=== PATIENT | male | born 1995 | race Caucasian/White ===

== ENCOUNTER 2018-02-13 09:42 | Inpatient (IN) | payer OTHER ==
[2018-02-13] MEDS ORDERED: SODIUM CHLORIDE 0.9% 1,000 ML IV STA ×2 (10:22)
--- NOTE | 2018-02-13 10:24 | ED ---
Recheck HPI - General Chief Complaint: Recheck/Abnormal Lab/Rx Stated Complaint: hyperglycemia Time Seen by Provider: 02/13/18 10:00 Source: patient, RN notes reviewed Mode of arrival: ambulatory Limitations: no limitations - History of Present Illness Initial Comments: This is a 22-year-old male with a benign past medical history who does say with complaints of elevated blood glucose level. He's had 2-3 weeks of polyuria polydipsia he's had weight loss she's hungry all the time he states. He's had some lightheadedness and dizziness. He bought an Accu-Chek machine yesterday was found have a blood glucose of 502. Recheck this morning 332. There is remote family history of diabetes no personal history of any medical issues at all. No fevers chills nausea vomiting sweats or other symptoms at this time no other modifying factors MD Complaint: abnormal lab - Related Data Home Medications Medication Instructions Recorded Confirmed No Known Home Medications 02/13/18 02/13/18 Allergies Allergy/AdvReac Type Severity Reaction Status Date / Time No Known Allergies Allergy Verified 02/13/18 10:18 Review of Systems ROS Statement: Those systems with pertinent positive or pertinent negative responses have been documented in the HPI. ROS Other: All systems not noted in ROS Statement are negative. Past Medical History Past Medical History: No Reported History History of Any Multi-Drug Resistant Organisms: None Reported Past Surgical History: No Surgical Hx Reported Past Psychological History: Depression Smoking Status: Never smoker Past Alcohol Use History: None Reported Past Drug Use History: None Reported General Exam - General Exam Comments Initial Comments: This is a well-developed asthenic appearing male who is awake alert oriented 3 Limitations: no limitations General appearance: alert, in no apparent distress Head exam: Present: atraumatic, normocephalic, normal inspection Eye exam: Present: normal appearance, PERRL, EOMI. Absent: scleral icterus, conjunctival injection, periorbital swelling ENT exam: Present: mucous membranes dry Neck exam: Present: normal inspection. Absent: tenderness, meningismus, lymphadenopathy Respiratory exam: Present: normal lung sounds bilaterally. Absent: respiratory distress, wheezes, rales, rhonchi, stridor Cardiovascular Exam: Present: normal rhythm, tachycardia, normal heart sounds. Absent: systolic murmur, diastolic murmur, rubs, gallop, clicks GI/Abdominal exam: Present: soft, normal bowel sounds. Absent: distended, tenderness, guarding, rebound, rigid Extremities exam: Present: normal inspection, full ROM, normal capillary refill. Absent: tenderness, pedal edema, joint swelling, calf tenderness Back exam: Present: normal inspection Neurological exam: Present: alert, oriented X3, CN II-XII intact Psychiatric exam: Present: normal affect, normal mood Skin exam: Present: warm, dry, intact, normal color. Absent: rash Course Vital Signs 02/13/18 02/13/18 09:52 11:56 Temperature 97.9 F Pulse Rate 111 H 85 Respiratory 18 18 Rate Blood Pressure 114/72 115/76 O2 Sat by Pulse 100 100 Oximetry - Reevaluation(s) Reevaluation #1: 02/13/18 10:24 Bedside glucose level was 327. Medical Decision Making - Medical Decision Making I did reevaluate patient several occasions he is feeling improved I did discuss the case with him as well as his significant other and with Dr. patel. Patient will be admitted for evaluation new-onset diabetes. - Lab Data Result diagrams: 02/13/18 10:11 02/13/18 10:11 Lab Results 02/13/18 02/13/18 02/13/18 Range/Units 10:11 10:11 10:19 WBC 7.2 (4.0-11.0) k/uL RBC 5.32 (4.30-5.90) m/uL Hgb 17.7 H (13.0-17.5) gm/dL Hct 48.5 (39.0-53.0) % MCV 91.3 (80.0-100.0) fL MCH 33.3 (25.0-35.0) pg MCHC 36.4 (31.0-37.0) g/dL RDW 11.6 (11.5-15.5) % Plt Count 204 (150-450) k/uL Neutrophils % 66 % Lymphocytes % 28 % Monocytes % 4 % Eosinophils % 1 % Basophils % 0 % Neutrophils # 4.7 (1.3-7.7) k/uL Lymphocytes # 2.0 (1.0-4.8) k/uL Monocytes # 0.3 (0-1.0) k/uL Eosinophils # 0.1 (0-0.7) k/uL Basophils # 0.0 (0-0.2) k/uL Sodium 139 (137-145) mmol/L Potassium 4.3 (3.5-5.1) mmol/L Chloride 97 L (98-107) mmol/L Carbon Dioxide 26 (22-30) mmol/L Anion Gap 16 mmol/L BUN 18 (9-20) mg/dL Creatinine 0.96 (0.66-1.25) mg/dL Est GFR (CKD-EPI)AfAm >90 (>60 ml/min/1.73 sqM) Est GFR (CKD-EPI)NonAf >90 (>60 ml/min/1.73 sqM) Glucose 321 H (74-99) mg/dL POC Glucose (mg/dL) 327 H (75-99) mg/dL POC Glu Metal Milling Machine Operator Nina Dove Calcium 10.6 H (8.4-10.2) mg/dL Magnesium 1.8 (1.6-2.3) mg/dL Total Bilirubin 1.2 (0.2-1.3) mg/dL AST 19 (17-59) U/L ALT 29 (21-72) U/L Alkaline Phosphatase 122 (38-126) U/L Total Protein 8.4 H (6.3-8.2) g/dL Albumin 4.9 (3.5-5.0) g/dL Urine Color Urine Appearance (Clear) Urine pH (5.0-8.0) Ur Specific [place] (1.001-1.035) Urine Protein (Negative) Urine Glucose (UA) (Negative) Urine Ketones (Negative) Urine Blood (Negative) Urine Nitrite (Negative) Urine Bilirubin (Negative) Urine Urobilinogen (<2.0) mg/dL Ur Leukocyte Esterase (Negative) Acetone, Qual Negative (Negative) 02/13/18 Range/Units 10:50 WBC (4.0-11.0) k/uL RBC (4.30-5.90) m/uL Hgb (13.0-17.5) gm/dL Hct (39.0-53.0) % MCV (80.0-100.0) fL MCH (25.0-35.0) pg MCHC (31.0-37.0) g/dL RDW (11.5-15.5) % Plt Count (150-450) k/uL Neutrophils % % Lymphocytes % % Monocytes % % Eosinophils % % Basophils % % Neutrophils # (1.3-7.7) k/uL Lymphocytes # (1.0-4.8) k/uL Monocytes # (0-1.0) k/uL Eosinophils # (0-0.7) k/uL Basophils # (0-0.2) k/uL Sodium (137-145) mmol/L Potassium (3.5-5.1) mmol/L Chloride (98-107) mmol/L Carbon Dioxide (22-30) mmol/L Anion Gap mmol/L BUN (9-20) mg/dL Creatinine (0.66-1.25) mg/dL Est GFR (CKD-EPI)AfAm (>60 ml/min/1.73 sqM) Est GFR (CKD-EPI)NonAf (>60 ml/min/1.73 sqM) Glucose (74-99) mg/dL POC Glucose (mg/dL) (75-99) mg/dL POC Glu Metal Milling Machine Operator ID Calcium (8.4-10.2) mg/dL Magnesium (1.6-2.3) mg/dL Total Bilirubin (0.2-1.3) mg/dL AST (17-59) U/L ALT (21-72) U/L Alkaline Phosphatase (38-126) U/L Total Protein (6.3-8.2) g/dL Albumin (3.5-5.0) g/dL Urine Color Yellow Urine Appearance Clear (Clear) Urine pH 5.0 (5.0-8.0) Ur Specific [place] 1.035 (1.001-1.035) Urine Protein Trace H (Negative) Urine Glucose (UA) 4+ H (Negative) Urine Ketones 2+ H (Negative) Urine Blood Negative (Negative) Urine Nitrite Negative (Negative) Urine Bilirubin Negative (Negative) Urine Urobilinogen <2.0 (<2.0) mg/dL Ur Leukocyte Esterase Negative (Negative) Acetone, Qual (Negative) - Radiology Data Radiology results: report reviewed (I did review the imaging and report no acute findings.), image reviewed Disposition Clinical Impression: Diabetes mellitus, new onset, Dehydration Disposition: ADMITTED IP TO THIS [facility] Condition: Stable Referrals: None,Stated [Primary Care Provider] - 1-2 days
[2018-02-13 10:26] LABS: Glucose,Whole Blood 327 mg/dL (75-99)
[2018-02-13 10:54] LABS: ALT 29 U/L (21-72); AST 19 U/L (17-59); Albumin 4.9 g/dL (3.5-5.0); Alkaline Phosphatase 122 U/L (38-126); Anion Gap 16 mmol/L; Blood Urea Nitrogen 18 mg/dL (9-20); Calcium 10.6 mg/dL (8.4-10.2); Carbon Dioxide 26 mmol/L (22-30); Chloride 97 mmol/L (98-107); Glucose 321 mg/dL (74-99); Magnesium 1.8 mg/dL (1.6-2.3); Potassium 4.3 mmol/L (3.5-5.1); Sodium 139 mmol/L (137-145); Total Bilirubin 1.2 mg/dL (0.2-1.3); Total Protein 8.4 g/dL (6.3-8.2)
[2018-02-13 10:59] LABS: Basophils % (A) 0 %; Eosinophils # (A) 0.1 k/uL (0-0.7); Eosinophils % (A) 1 %; HCT 48.5 % (39.0-53.0); HGB 17.7 gm/dL (13.0-17.5); Lymphocytes % (A) 28 %; MCH 33.3 pg (25.0-35.0); MCHC 36.4 g/dL (31.0-37.0); MCV 91.3 fL (80.0-100.0); Mean Platelet Volume 7.1; Monocytes # (A) 0.3 k/uL (0-1.0); Monocytes % (A) 4 %; Neutrophils # (A) 4.7 k/uL (1.3-7.7); Neutrophils % (A) 66 %; Platelet Count 204 k/uL (150-450); RBC 5.32 m/uL (4.30-5.90); RDW 11.6 % (11.5-15.5); WBC 7.2 k/uL (4.0-11.0)
[2018-02-13 11:05] LABS: Appearance,Urine Clear (Clear); Bilirubin,Urine Negative (Negative); Blood,Urine Negative (Negative); Color,Urine Yellow; Glucose,Urine (UA) 4+ (Negative); Leukocyte Esterase,Urine Negative (Negative); Nitrite,Urine Negative (Negative); Protein,Urine Trace (Negative); Specific Gravity,Urine 1.035 (1.001-1.035); Urobilinogen,Urine <2.0 mg/dL (<2.0)
--- NOTE | 2018-02-13 11:21 | XR ---
EXAMINATION TYPE: XR chest 2V DATE OF EXAM: 02/13/2018 COMPARISON: NONE HISTORY: Cough. TECHNIQUE: Frontal and lateral views of the chest are obtained. FINDINGS: There is no focal air space opacity, pleural effusion, or pneumothorax seen. The cardiac silhouette size is within normal limits. The osseous structures are intact. IMPRESSION: No suspicious acute pulmonary process.
[2018-02-13 11:43] LABS: Ketones,Urine 2+ (Negative)
[2018-02-13] MEDS ORDERED: INSULIN REGULAR 100 UNIT/ML VIAL IV ONE (12:13)
[2018-02-13] MEDS ORDERED: NALOXONE 0.4 MG/ML 1 ML VIAL IV PRN (13:38)
[2018-02-13] MEDS: SODIUM CHLORIDE 0.9% 1,000 ML IV SCH (15:45)
[2018-02-13 17:06] LABS: Glucose,Whole Blood 371 mg/dL (75-99)
[2018-02-13 17:48] LABS: Hemoglobin A1C 10.2 % (4.0-6.0)
[2018-02-13] MEDS: INSULIN ASPART 100 UNIT/ML 1 ML 10 ML VIAL SQ SCH ×3 (17:56→21:18)
[2018-02-13 21:07] LABS: Glucose,Whole Blood 379 mg/dL (75-99)
[2018-02-13] MEDS: INSULIN DETEMIR 100 UNIT/ML 10 ML VIAL SQ SCH (21:27)
[2018-02-13 22:29] LABS: Glucose,Whole Blood 185 mg/dL (75-99)
--- NOTE | 2018-02-13 22:41 | P.HPIM ---
History of Present Illness H&P Date: 02/13/18 Chief Complaint: Elevated blood sugar Patient is a 22-year-old male without significant past medical history came to the hospital with elevated blood sugar level checked at home. For the past 2-3 weeks patient has been having polyuria and polydipsia and felt very weak and fatigued. Patient says that she did not gain any weight despite feeling hungry and heavy food intake. Patient was at his friend's house and when he checked his blood sugar was found to be greater than 500. Patient did took some bread and M&Ms at that time. Patient did check his blood sugar the next day morning which she still elevated greater than 300. Patient presented to ER for evaluation. Does have a family history of diabetes2 and his grandmother's and great grandfather. No fever no chills. No abdominal pain. No nausea vomiting. No chest pain or shortness of breath. Acetone negative Review of Systems Constitutional: Patient denies any fever or chills . She does have generalized weakness and weight loss. Abdomen: Patient denied nausea vomiting and diarrhea and abdominal pain. Cardiovascular: Patient denies any chest pain or short of breath no palpitations. Respiratory: patient denied any cough is from production. No shortness of breath Neurologic: Patient denied any numbness or tingling headache. Musculoskeletal: Patient denies any complaints of joint swelling or deformity. Skin: Negative Psychiatric: Negative Endocrine: No heat or cold intolerance. Patient does have polyuria or polydipsia and weight loss. Genitourinary: No dysuria or hematuria. All other 14 point ROS negative except the above Past Medical History Past Medical History: No Reported History History of Any Multi-Drug Resistant Organisms: None Reported Past Surgical History: No Surgical Hx Reported Past Psychological History: Depression Smoking Status: Never smoker Past Alcohol Use History: None Reported Past Drug Use History: None Reported - Past Family History Mother History Unknown: Yes Father History Unknown: Yes Medications and Allergies Home Medications Medication Instructions Recorded Confirmed Type No Known Home Medications 02/13/18 02/13/18 History Allergies Allergy/AdvReac Type Severity Reaction Status Date / Time No Known Allergies Allergy Verified 02/13/18 10:18 Physical Exam Vitals: Vital Signs Temp Pulse Resp BP Pulse Ox 02/13/18 13:37 72 18 114/79 100 02/13/18 11:56 85 18 115/76 100 02/13/18 09:52 97.9 F 111 H 18 114/72 100 Intake and Output 02/12/18 02/13/18 02/13/18 22:59 06:59 14:59 Other: Weight 58.649 kg PHYSICAL EXAMINATION: Patient is lying in the bed comfortably, no acute distress, awake alert and oriented.. HEENT: Normocephalic. Neck is supple. Pupils reactive. Nostrils clear. Oral cavity is moist. Ears reveal no drainage. Neck reveals no JVD, carotid bruits, or thyromegaly. CHEST EXAMINATION: Trachea is central. Symmetrical expansion. Lung stiles clear to auscultation and percussion. CARDIAC: Normal S1, S2 with no gallops. No murmurs ABDOMEN: Soft. Bowel sounds normal. No organomegaly. No abdominal bruits. Extremities: reveal no edema. No clubbing or cyanosis Neurologically awake, alert, oriented x3 with well-coordinated movements. No focal deficits noted Skin: No rash or skin lesions. Psychiatric: Coperative. Nonsuicidal Musculoskeletal: No joint swelling or deformity. Normal range of motion. Results CBC & Chem 7: 02/13/18 10:11 02/13/18 10:11 Labs: Abnormal Lab Results - Last 24 Hours (Table) 02/13/18 02/13/18 02/13/18 Range/Units 10:11 10:11 10:19 Hgb 17.7 H (13.0-17.5) gm/dL Chloride 97 L (98-107) mmol/L Glucose 321 H (74-99) mg/dL POC Glucose (mg/dL) 327 H (75-99) mg/dL Calcium 10.6 H (8.4-10.2) mg/dL Total Protein 8.4 H (6.3-8.2) g/dL Urine Protein (Negative) Urine Glucose (UA) (Negative) Urine Ketones (Negative) 02/13/18 Range/Units 10:50 Hgb (13.0-17.5) gm/dL Chloride (98-107) mmol/L Glucose (74-99) mg/dL POC Glucose (mg/dL) (75-99) mg/dL Calcium (8.4-10.2) mg/dL Total Protein (6.3-8.2) g/dL Urine Protein Trace H (Negative) Urine Glucose (UA) 4+ H (Negative) Urine Ketones 2+ H (Negative) Thrombosis Risk Factor Assmnt - DVT/VTE Prophylaxis DVT/VTE Prophylaxis: Pharmacologic Prophylaxis ordered Assessment and Plan Assessment: Elevated blood sugar with new onset diabetes type 2. Not in DKA. HB A1c 10.2 Hypercalcemia due to dehydration Weight loss and generalized weakness Plan: Patient will be continued on IV hydration. Will start patient on insulin Levemir 15 units in the night along with 5 units 3 times a day before meals. Continue the insulin sliding scale and follow closely. Diabetic education has been provided. We'll recommend follow-up with endocrinology as outpatient. Time with Patient: Greater than 30
[2018-02-14 02:15] LABS: Glucose,Whole Blood 212 mg/dL (75-99)
[2018-02-14] MEDS: SODIUM CHLORIDE 0.9% 1,000 ML IV SCH ×2 (06:18→17:49)
[2018-02-14 07:31] LABS: Glucose,Whole Blood 189 mg/dL (75-99)
[2018-02-14] MEDS: INSULIN ASPART 100 UNIT/ML 1 ML 10 ML VIAL SQ SCH ×7 (08:22→21:31)
[2018-02-14 12:14] LABS: Basophils % (A) 1 %; Eosinophils # (A) 0.1 k/uL (0-0.7); Eosinophils % (A) 2 %; HCT 41.1 % (39.0-53.0); Lymphocytes # (A) 1.7 k/uL (1.0-4.8); Lymphocytes % (A) 33 %; MCH 31.8 pg (25.0-35.0); MCHC 34.1 g/dL (31.0-37.0); MCV 93.2 fL (80.0-100.0); Monocytes # (A) 0.2 k/uL (0-1.0); Monocytes % (A) 5 %; Neutrophils # (A) 2.9 k/uL (1.3-7.7); Neutrophils % (A) 58 %; Platelet Count 146 k/uL (150-450); RBC 4.41 m/uL (4.30-5.90); RDW 11.6 % (11.5-15.5); WBC 4.9 k/uL (4.0-11.0)
[2018-02-14 12:23] LABS: Glucose,Whole Blood 336 mg/dL (75-99)
[2018-02-14 12:24] LABS: Anion Gap 7 mmol/L; Blood Urea Nitrogen 13 mg/dL (9-20); Calcium 9.2 mg/dL (8.4-10.2); Carbon Dioxide 25 mmol/L (22-30); Chloride 106 mmol/L (98-107); Glucose 280 mg/dL (74-99); Potassium 4.2 mmol/L (3.5-5.1); Sodium 138 mmol/L (137-145)
[2018-02-14] MEDS ORDERED: INSULN ASP PRT/INSULIN ASPART 100 UNIT/ML 10 ML VIAL SQ ONE (13:39)
[2018-02-14 15:13] VITALS: BMI 17.0
[2018-02-14 17:21] LABS: Glucose,Whole Blood 141 mg/dL (75-99)
[2018-02-14] MEDS ORDERED: INSULN ASP PRT/INSULIN ASPART 100 UNIT/ML 10 ML VIAL SQ SCH (17:30)
[2018-02-14] MEDS: INSULIN DETEMIR 100 UNIT/ML 10 ML VIAL SQ SCH (21:32)
[2018-02-14 21:37] LABS: Glucose,Whole Blood 155 mg/dL (75-99)
--- NOTE | 2018-02-15 00:17 | P.PN ---
Subjective Progress Note Date: 02/14/18 Principal diagnosis: New onset diabetes2 Patient is a 22-year-old male without significant past medical history came to the hospital with elevated blood sugar level checked at home. For the past 2-3 weeks patient has been having polyuria and polydipsia and felt very weak and fatigued. Patient says that she did not gain any weight despite feeling hungry and heavy food intake. Patient was at his friend's house and when he checked his blood sugar was found to be greater than 500. Patient did took some bread and M&Ms at that time. Patient did check his blood sugar the next day morning which she still elevated greater than 300. Patient presented to ER for evaluation. Does have a family history of diabetes2 and his grandmother's and great grandfather. No fever no chills. No abdominal pain. No nausea vomiting. No chest pain or shortness of breath. Acetone negative 02/14/2018 Patient says that he is feeling better today. Blood sugar is still elevated. Patient be continued on Lantus and insulin sliding scale and preprandial insulin. Titrate as needed. No complaints of chest pain or shortness of breath. No nausea vomiting or abdominal pain continued on IV hydration. No other acute overnight issues. Current medications reviewed Objective - Vital Signs Vital signs: Vital Signs Temp 97.8 F 02/14/18 23:00 Pulse 64 02/14/18 23:00 Resp 18 02/14/18 23:00 BP 102/64 02/14/18 23:00 Pulse Ox 100 02/14/18 23:00 Intake & Output 02/14/18 02/14/18 02/15/18 06:59 18:59 06:59 Intake Total 440 320 Balance 440 320 Weight 58.649 kg Intake: Oral 440 320 Other: Voiding Method Toilet Toilet # Voids 2 2 # Bowel Movements 0 - Exam PHYSICAL EXAMINATION: Patient is lying in the bed comfortably, no acute distress, awake alert and oriented.. HEENT: Normocephalic. Neck is supple. Pupils reactive. Nostrils clear. Oral cavity is moist. Ears reveal no drainage. Neck reveals no JVD, carotid bruits, or thyromegaly. CHEST EXAMINATION: Trachea is central. Symmetrical expansion. Lung stiles clear to auscultation and percussion. CARDIAC: Normal S1, S2 with no gallops. No murmurs ABDOMEN: Soft. Bowel sounds normal. No organomegaly. No abdominal bruits. Extremities: reveal no edema. No clubbing or cyanosis Neurologically awake, alert, oriented x3 with well-coordinated movements. No focal deficits noted Skin: No rash or skin lesions. Psychiatric: Coperative. Nonsuicidal Musculoskeletal: No joint swelling or deformity. Normal range of motion. - Labs CBC & Chem 7: 02/14/18 11:36 02/14/18 11:36 Labs: Abnormal Lab Results - Last 24 Hours (Table) 02/14/18 02/14/18 02/14/18 Range/Units 02:13 07:27 11:36 Plt Count 146 L (150-450) k/uL Creatinine (0.66-1.25) mg/dL Glucose (74-99) mg/dL POC Glucose (mg/dL) 212 H 189 H (75-99) mg/dL 02/14/18 02/14/18 02/14/18 Range/Units 11:36 12:02 17:01 Plt Count (150-450) k/uL Creatinine 0.61 L (0.66-1.25) mg/dL Glucose 280 H (74-99) mg/dL POC Glucose (mg/dL) 336 H 141 H (75-99) mg/dL 02/14/18 Range/Units 21:09 Plt Count (150-450) k/uL Creatinine (0.66-1.25) mg/dL Glucose (74-99) mg/dL POC Glucose (mg/dL) 155 H (75-99) mg/dL Assessment and Plan Assessment: Elevated blood sugar with new onset diabetes type 2. Not in DKA. HB A1c 10.2 Hypercalcemia due to dehydration Weight loss and generalized weakness Plan: Patient will be continued on IV hydration. Will start patient on insulin Levemir 15 units in the night along with 5 units 3 times a day before meals. Continue the insulin sliding scale and follow closely. Diabetic education has been provided. We'll recommend follow-up with endocrinology as outpatient.
[2018-02-15 02:52] LABS: Glucose,Whole Blood 115 mg/dL (75-99)
[2018-02-15] MEDS: SODIUM CHLORIDE 0.9% 1,000 ML IV SCH ×2 (04:01→15:15)
[2018-02-15 07:08] LABS: Glucose,Whole Blood 108 mg/dL (75-99)
[2018-02-15] MEDS ORDERED: INSULN ASP PRT/INSULIN ASPART 100 UNIT/ML 10 ML VIAL SQ SCH (07:30)
[2018-02-15] MEDS: INSULIN ASPART 100 UNIT/ML 1 ML 10 ML VIAL SQ SCH ×2 (07:39→12:22)
[2018-02-15 07:51] VITALS: BP 107/67; PULSE 75; RESP 16; TEMP 98.2
[2018-02-15 12:18] LABS: Glucose,Whole Blood 171 mg/dL (75-99)
== END 2018-02-15 15:54 | disposition home or self-care (01) | DRG 639 ==
LOC: EC 09:42 → 4MS4W 13:38
PROVIDERS: ADMIT Internal Medicine; ATTEND Internal Medicine
DX: E11.65 Type 2 diabetes mellitus with hyperglycemia (principal); E83.52 Hypercalcemia; E86.0 Dehydration; Z83.3 Family history of diabetes mellitus; Z86.59 Personal history of other mental and behavioral disorders
CPT/HCPCS: 36415; 71046; 80048; 80053; 81003; 82009; 83036; 83735; 85025; 96360; 96361; 99285

== ENCOUNTER 2019-01-03 07:30 | Observation (INO) | payer BC ==
[2019-01-03] MEDS ORDERED: SODIUM CHLORIDE 0.9% 1,000 ML IV STA ×2 (07:36→08:32)
[2019-01-03 07:47] LABS: Glucose,Whole Blood 470 mg/dL (75-99)
[2019-01-03 07:59] LABS: Appearance,Urine Clear (Clear); Bilirubin,Urine Negative (Negative); Blood,Urine Negative (Negative); Color,Urine Colorless; Glucose,Urine (UA) 4+ (Negative); Leukocyte Esterase,Urine Negative (Negative); Nitrite,Urine Negative (Negative); PH, Urine 5.5 (5.0-8.0); Protein,Urine Negative (Negative); Specific Gravity,Urine 1.033 (1.001-1.035); Urobilinogen,Urine <2.0 mg/dL (<2.0)
--- NOTE | 2019-01-03 08:01 | ED ---
General Adult HPI - General Chief complaint: Recheck/Abnormal Lab/Rx Stated complaint: diabetes Time Seen by Provider: 01/03/19 07:35 Source: patient Mode of arrival: ambulatory Limitations: no limitations - History of Present Illness Initial comments: Dictation was produced using [employer] dictation software. please excuse any grammatical, word or spelling errors. Chief Complaint: 23-year-old male presents with uncontrolled hyperglycemia. History of Present Illness: 23-year-old male. He's been diagnosed with diabetes for approximately one year now. Patient has been having uncontrolled blood sugars that have been managed by his primary care physician. Patient is on insulin. He had his hemoglobin A1c measured recently and is finally 12.7. Patient on average has been having sugars in the 300. He checked his blood sugar at 1 AM this morning found to be 600. He gave himself 8 units of NovoLog rechecked at 5 minutes 406. Patient has been having nausea vomiting polyuria and polydipsia. Patient denies any constitutional symptoms. The ROS documented in this emergency department record has been reviewed and confirmed by me. Those systems with pertinent positive or negative responses have been documented in the HPI. All other systems are other negative and/or noncontributory. PHYSICAL EXAM: General Impression: Alert and oriented x3, not in acute distress HEENT: Normocephalic atraumatic, extra-ocular movements intact, pupils equal and reactive to light bilaterally, dry mucous membranes Cardiovascular: Heart regular rate and rhythm, S1&S2 audible, no murmurs, rubs or gallops Chest: Lungs clear to auscultation bilaterally, no rhonchi, no wheeze, no rales Abdomen: Bowel sounds present, abdomen soft, non-tender, non-distended, no organomegaly Musculoskeletal: Pulses present and equal in all extremities, no peripheral edema Motor: no focal deficits noted Neurological: CN II-XII grossly intact, no focal motor or sensory deficits noted Skin: Intact with no visualized rashes Psych: Normal affect and mood ED course: 23-year-old male presents with uncontrolled blood sugar. Given the patient has a recently measured A1c of 12.7 sugars likely chronically uncontrolled. Vital signs upon arrival shows findings within acceptable limits. Lab evaluation obtained. Sodium of 134, glucose of 555, anion gap acidosis with bicarb of 19 and anion gap 16. His 4+ glucose in his urine and 2+ ketones. Johnson leónical presentation consistent with mild diabetic ketoacidosis. Patient reports that it's unclear whether patient is late onset type I or type 2 diabetes. Patient given multiple boluses of intravenous fluids. he'll be admitted for IV hydration and glucose control. he understandable agreeable with disposition. Pending discussion with Dr. Ramirez. - Related Data Home Medications Medication Instructions Recorded Confirmed Cyanocobalamin (Vitamin B-12) 2,000 mcg PO HS 01/03/19 01/03/19 [Vitamin B-12] Gabapentin [Neurontin] 100 mg PO AC-TID 01/03/19 01/03/19 Insulin Aspart [NovoLOG Flexpen] 8 units SQ AC-TID 01/03/19 01/03/19 Magnesium 200 mg PO HS 01/03/19 01/03/19 Modafinil [Provigil] 200 mg PO HS PRN 01/03/19 01/03/19 Allergies Allergy/AdvReac Type Severity Reaction Status Date / Time No Known Allergies Allergy Verified 01/03/19 08:45 Review of Systems ROS Statement: Those systems with pertinent positive or pertinent negative responses have been documented in the HPI. ROS Other: All systems not noted in ROS Statement are negative. Past Medical History Past Medical History: Diabetes Mellitus Additional Past Medical History / Comment(s): depression but takes no meds. History of Any Multi-Drug Resistant Organisms: None Reported Past Surgical History: No Surgical Hx Reported Additional Past Surgical History / Comment(s): oral Past Anesthesia/Blood Transfusion Reactions: No Reported Reaction Additional Past Anesthesia/Blood Transfusion Reaction / Comment(s): "has never received any blood transfusions" Past Psychological History: No Psychological Hx Reported Smoking Status: Never smoker Past Alcohol Use History: None Reported Past Drug Use History: None Reported - Past Family History Mother History Unknown: Yes Father History Unknown: Yes General Exam Limitations: no limitations Course Vital Signs 01/03/19 07:31 Temperature 97.8 F Pulse Rate 97 Respiratory 18 Rate Blood Pressure 129/88 O2 Sat by Pulse 100 Oximetry Medical Decision Making - Lab Data Result diagrams: 01/03/19 07:45 Lab Results 01/03/19 01/03/19 01/03/19 Range/Units 07:35 07:45 07:45 Sodium 134 L (137-145) mmol/L Potassium 4.9 (3.5-5.1) mmol/L Chloride 99 (98-107) mmol/L Carbon Dioxide 19 L (22-30) mmol/L Anion Gap 16 mmol/L BUN 18 (9-20) mg/dL Creatinine 0.82 (0.66-1.25) mg/dL Est GFR (CKD-EPI)AfAm >90 (>60 ml/min/1.73 sqM) Est GFR (CKD-EPI)NonAf >90 (>60 ml/min/1.73 sqM) Glucose 555 H* (74-99) mg/dL POC Glucose (mg/dL) 470 H (75-99) mg/dL POC Glu Tunnel Elastic Operator Zigzag ID Emiliano Gibson Calcium 9.9 (8.4-10.2) mg/dL Urine Color Colorless Urine Appearance Clear (Clear) Urine pH 5.5 (5.0-8.0) Ur Specific [place] 1.033 (1.001-1.035) Urine Protein Negative (Negative) Urine Glucose (UA) 4+ H (Negative) Urine Ketones 2+ H (Negative) Urine Blood Negative (Negative) Urine Nitrite Negative (Negative) Urine Bilirubin Negative (Negative) Urine Urobilinogen <2.0 (<2.0) mg/dL Ur Leukocyte Esterase Negative (Negative) Disposition Clinical Impression: DKA (diabetic ketoacidoses) Disposition: ADMITTED IP TO THIS [facility] Condition: Fair Decision Time: 08:53
[2019-01-03 08:06] LABS: African American GFR (CKD) >90 (>60 ml/min/1.73 sqM); Anion Gap 16 mmol/L; Blood Urea Nitrogen 18 mg/dL (9-20); Calcium 9.9 mg/dL (8.4-10.2); Carbon Dioxide 19 mmol/L (22-30); Chloride 99 mmol/L (98-107); Non-African American GFR(CKD) >90 (>60 ml/min/1.73 sqM); Potassium 4.9 mmol/L (3.5-5.1); Sodium 134 mmol/L (137-145)
[2019-01-03 08:14] LABS: Glucose 555 mg/dL (74-99)
[2019-01-03] MEDS ORDERED: INSULIN REGULAR 100 UNIT/ML VIAL IV ONE (08:18)
[2019-01-03 08:24] LABS: Ketones,Urine 2+ (Negative)
[2019-01-03] MEDS ORDERED: ONDANSETRON 4 MG/2 ML VIAL IVP PRN (08:51)
[2019-01-03] MEDS ORDERED: NALOXONE 0.4 MG/ML 1 ML VIAL IV PRN (08:51)
[2019-01-03 09:08] LABS: Glucose,Whole Blood 419 mg/dL (75-99)
[2019-01-03] MEDS ORDERED: Potassium Replacement Protocol 1 EACH MISC MISCELLANE PRN ×2 (09:10→14:48)
[2019-01-03] MEDS ORDERED: Magnesium Replacement Protocol 1 EACH MISC MISCELLANE PRN (09:10)
[2019-01-03] MEDS ORDERED: INSULIN REGULAR 100 UNIT in SODIUM CHLORIDE 0.9% 100 ML IV SCH (09:15)
[2019-01-03 09:57] LABS: Glucose,Whole Blood 375 mg/dL (75-99)
[2019-01-03] MEDS ORDERED: INFLUENZA VACCINE (6 MOS+) 60 MCG/0.5 ML SYRINGE IM ONE (10:08)
[2019-01-03] MEDS ORDERED: PNEUMOCOCCAL VACC-PNEUMOVAX 23 25 MCG/0.5 ML VIAL IM ONE (10:08)
[2019-01-03 11:11] LABS: Glucose,Whole Blood 334 mg/dL (75-99)
[2019-01-03] MEDS: SODIUM CHLORIDE 0.9% 1,000 ML IV SCH ×5 (11:31→23:21)
[2019-01-03 12:21] LABS: Glucose,Whole Blood 250 mg/dL (75-99)
[2019-01-03] MEDS ORDERED: INSULIN ASPART (NovoLOG) 100 UNIT/ML VIAL SQ SCH (12:30)
[2019-01-03 13:05] LABS: Glucose,Whole Blood 218 mg/dL (75-99)
[2019-01-03 13:21] VITALS: BMI 17.6
[2019-01-03 13:39] LABS: African American GFR (CKD) >90 (>60 ml/min/1.73 sqM); Anion Gap 8 mmol/L; Blood Urea Nitrogen 18 mg/dL (9-20); Carbon Dioxide 25 mmol/L (22-30); Chloride 106 mmol/L (98-107); Non-African American GFR(CKD) >90 (>60 ml/min/1.73 sqM); Phosphorus 3.7 mg/dL (2.5-4.5); Potassium 3.4 mmol/L (3.5-5.1); Sodium 139 mmol/L (137-145)
[2019-01-03 14:15] LABS: Glucose,Whole Blood 167 mg/dL (75-99)
[2019-01-03] MEDS: POTASSIUM CHLORIDE ER 20 MEQ TAB.ER PO SCH ×2 (14:59→16:18)
[2019-01-03 15:07] LABS: Glucose,Whole Blood 98 mg/dL (75-99)
[2019-01-03 15:35] LABS: Glucose,Whole Blood 73 mg/dL (75-99)
--- NOTE | 2019-01-03 15:38 | P.HPIM ---
History of Present Illness H&P Date: 01/03/19 Chief Complaint: Nausea vomiting History of presenting complaint: This is a pleasant 43-year-old patient who follows with Dr. Jaswant kenyon from [place]. Patient over Urecholine was diagnosed with diabetes mellitus type 1 and started on insulin pump. Prior to that was using Levemir and NovoLog. Patient's been having trouble with her supplies. Also the attachment that attaches to the skin has been getting blocked up. Also not getting much help he states from the company that with insulin pump. Is also having trouble with the continuous glucose monitor. He does not follow with commercial loan reviewer. Recently just been using the NovoLog. His sugars are running high in the 300s. Recent HbA1c was 12.7. Patient had gone to work he started feeling unwell. Started having nausea vomiting. Found to have sugars reading above 500. Came to the ER. Patient's anion gap was 16. Blood glucose was 555. Talk to the ER physician. Decided to start the patient on insulin drip. Patient been feeling weak tired. No respiratory or urinary symptoms. No fever or chills. Review of systems: GEN.: Weak tired rundown EYES: None HEENT: None NECK: None RESPIRATORY: None CARDIOVASCULAR: None GASTROINTESTINAL: As above GENITOURINARY: None MUSCULOSKELETAL: None LYMPHATICS: None HEMATOLOGICAL: None PSYCHIATRY: None NEUROLOGICAL: Numbness tingling in the feet and hand Past medical history to include: Diabetes mellitus type 1 with peripheral neuropathy Social history: Lives with his fiance. Works in the factory as a line d-dimer. Does not smoke or drink alcohol. No use of recreational drugs. Family history: Reviewed, noncontributory to presentation Physical examination: VITAL SIGNS: 97.8, 97, 18, 129/88, 100% room air GENERAL: BMI 17.7, laying in bed to bit tired appearing. EYES: Pupils equal. Conjunctiva normal. HEENT: External appearance of nose and ears normal, oral cavity dry. NECK: JVD not raised; masses not palpable. HEART: First and second heart sounds are normal; no edema. LUNGS: Respiratory rate normal; clear to auscultation. ABDOMEN: Soft, nontender, liver spleen not palpable, no masses palpable. PSYCH: Alert and oriented x3; mood and affect normal. NEUROLOGICAL: Cranial nerves grossly intact; no facial asymmetry, power and sensation grossly intact. LYMPHATICS: No lymph nodes palpable in the axilla and neck INVESTIGATIONS, reviewed in the clinical context: Yesenia 4.9 crit 0.8 to blood glucose 555 serum acetone positive UA positive for ketones and glucose Assessment: -Acute diabetic ketoacidosis -Diabetes because type I, uncontrolled with hyperglycemia. Patient's on insulin pump but supplies are not working right. He is having mechanical problem. Diabetic peripheral neuropathy Plan: Patient started on insulin pump. Discussed with him today. We'll start the patient on long-acting Lantus tonight if doing better. He will then follow-up process PCP and will also be established commercial loan reviewer. Also diabetic wanted to add was consulted. Lovenox for DVT prophylaxis. Diet to advance as tolerated. Past Medical History Past Medical History: Diabetes Mellitus Additional Past Medical History / Comment(s): IDDM, neuropathy bilteral ocampo ds/fingers, pt states he has insulin pump but has issues with it "clogging" and has limited supplies so will then convert to his insulins pen History of Any Multi-Drug Resistant Organisms: None Reported Past Surgical History: No Surgical Hx Reported Additional Past Surgical History / Comment(s): oral Past Anesthesia/Blood Transfusion Reactions: No Reported Reaction Additional Past Anesthesia/Blood Transfusion Reaction / Comment(s): "has never received any blood transfusions" Smoking Status: Never smoker - Past Family History Mother History Unknown: Yes Family Medical History: No Reported History Additional Family Medical History / Comment(s): Mother is healthy Father History Unknown: Yes Family Medical History: No Reported History Additional Family Medical History / Comment(s): Father is healthy Medications and Allergies Home Medications Medication Instructions Recorded Confirmed Type Cyanocobalamin (Vitamin B-12) 2,000 mcg PO HS 01/03/19 01/03/19 History [Vitamin B-12] Gabapentin [Neurontin] 100 mg PO AC-TID 01/03/19 01/03/19 History Insulin Aspart [NovoLOG Flexpen] 8 units SQ AC-TID 01/03/19 01/03/19 History Magnesium 200 mg PO HS 01/03/19 01/03/19 History Modafinil [Provigil] 200 mg PO HS PRN 01/03/19 01/03/19 History Allergies Allergy/AdvReac Type Severity Reaction Status Date / Time No Known Allergies Allergy Verified 01/03/19 08:45 Physical Exam Vitals: Vital Signs Temp Pulse Pulse Resp BP BP Pulse Ox 01/03/19 12:00 98.1 F 80 14 119/77 100 01/03/19 09:13 98.4 F 72 18 113/65 98 01/03/19 07:31 97.8 F 97 18 129/88 100 Intake and Output 01/03/19 01/03/19 01/03/19 06:59 14:59 22:59 Intake Total 340 Output Total 625 Balance -285 Intake: Amount of Fluid Infused ( 100 ml) Oral 240 Output: Urine 625 Other: Weight 60.781 kg Results CBC & Chem 7: 01/03/19 13:05 Labs: Abnormal Lab Results - Last 24 Hours (Table) 01/03/19 01/03/19 01/03/19 Range/Units 07:35 07:45 07:45 Sodium 134 L (137-145) mmol/L Potassium (3.5-5.1) mmol/L Carbon Dioxide 19 L (22-30) mmol/L Creatinine (0.66-1.25) mg/dL Glucose 555 H* (74-99) mg/dL POC Glucose (mg/dL) 470 H (75-99) mg/dL Urine Glucose (UA) 4+ H (Negative) Urine Ketones 2+ H (Negative) 01/03/19 01/03/19 01/03/19 Range/Units 09:06 09:50 10:58 Sodium (137-145) mmol/L Potassium (3.5-5.1) mmol/L Carbon Dioxide (22-30) mmol/L Creatinine (0.66-1.25) mg/dL Glucose (74-99) mg/dL POC Glucose (mg/dL) 419 H 375 H 334 H (75-99) mg/dL Urine Glucose (UA) (Negative) Urine Ketones (Negative) 01/03/19 01/03/19 01/03/19 Range/Units 11:58 13:03 13:05 Sodium (137-145) mmol/L Potassium 3.4 L (3.5-5.1) mmol/L Carbon Dioxide (22-30) mmol/L Creatinine 0.59 L (0.66-1.25) mg/dL Glucose (74-99) mg/dL POC Glucose (mg/dL) 250 H 218 H (75-99) mg/dL Urine Glucose (UA) (Negative) Urine Ketones (Negative) 01/03/19 Range/Units 14:04 Sodium (137-145) mmol/L Potassium (3.5-5.1) mmol/L Carbon Dioxide (22-30) mmol/L Creatinine (0.66-1.25) mg/dL Glucose (74-99) mg/dL POC Glucose (mg/dL) 167 H (75-99) mg/dL Urine Glucose (UA) (Negative) Urine Ketones (Negative) Thrombosis Risk Factor Assmnt - Choose All That Apply Any of the Below Risk Factors Present?: No Other Risk Factors: No Other congenital or acquired thrombophilia - If yes, enter type in comment: No Thrombosis Risk Factor Assessment Level: Very Low Risk
[2019-01-03 16:17] LABS: Glucose,Whole Blood 165 mg/dL (75-99)
[2019-01-03 17:03] LABS: Glucose,Whole Blood 251 mg/dL (75-99)
[2019-01-03] MEDS: ENOXAPARIN 40 MG/0.4 ML SYRINGE SQ SCH (17:40)
[2019-01-03] MEDS: INSULIN ASPART (NovoLOG) 100 UNIT/ML VIAL SQ SCH (17:40)
[2019-01-03 17:59] LABS: African American GFR (CKD) >90 (>60 ml/min/1.73 sqM); Anion Gap 7 mmol/L; Blood Urea Nitrogen 18 mg/dL (9-20); Carbon Dioxide 25 mmol/L (22-30); Chloride 104 mmol/L (98-107); Non-African American GFR(CKD) >90 (>60 ml/min/1.73 sqM); Phosphorus 4.5 mg/dL (2.5-4.5); Potassium 4.5 mmol/L (3.5-5.1); Sodium 136 mmol/L (137-145)
[2019-01-03 19:46] LABS: Glucose,Whole Blood 312 mg/dL (75-99)
[2019-01-03 20:32] VITALS: RESP 16
[2019-01-03] MEDS ORDERED: INSULIN DETEMIR (LEVEMIR) 100 UNIT/ML SYR SQ SCH (21:00)
[2019-01-04 02:06] LABS: Glucose,Whole Blood 287 mg/dL (75-99)
[2019-01-04 06:53] LABS: African American GFR (CKD) >90 (>60 ml/min/1.73 sqM); Anion Gap 7 mmol/L; Blood Urea Nitrogen 20 mg/dL (9-20); Calcium 8.9 mg/dL (8.4-10.2); Carbon Dioxide 23 mmol/L (22-30); Chloride 105 mmol/L (98-107); Glucose 387 mg/dL (74-99); Non-African American GFR(CKD) >90 (>60 ml/min/1.73 sqM); Potassium 4.5 mmol/L (3.5-5.1); Sodium 135 mmol/L (137-145)
[2019-01-04] MEDS: INSULIN ASPART (NovoLOG) 100 UNIT/ML VIAL SQ SCH ×7 (07:01→17:21)
[2019-01-04 07:02] LABS: Glucose,Whole Blood 349 mg/dL (75-99)
[2019-01-04] MEDS: SODIUM CHLORIDE 0.9% 1,000 ML IV SCH ×2 (09:06)
[2019-01-04] MEDS: ENOXAPARIN 40 MG/0.4 ML SYRINGE SQ SCH (09:12)
[2019-01-04 12:05] LABS: Glucose,Whole Blood 253 mg/dL (75-99)
[2019-01-04 12:27] VITALS: BP 105/71; PULSE 88; TEMP 98.4
[2019-01-04 16:38] LABS: Glucose,Whole Blood 162 mg/dL (75-99)
[2019-01-04] MEDS ORDERED: INSULIN DETEMIR (LEVEMIR) 100 UNIT/ML SYR SQ SCH (21:00)
--- NOTE | 2019-01-05 19:05 | P.DS ---
Providers Date of admission: 01/03/19 08:51 Expected date of discharge: 01/04/19 Attending physician: Timo Ramirez Primary care physician: Dakota Valero [facility] Course: Chief Complaint: Nausea vomiting Hospital course: This is a pleasant 43-year-old patient who follows with Dr. Jaswant valero from [place]. Patient over Urecholine was diagnosed with diabetes mellitus type 1 and started on insulin pump. Prior to that was using Levemir and NovoLog. Patient's been having trouble with her supplies. Also the attachment that attaches to the skin has been getting blocked up. Also not getting much help he states from the company that with insulin pump. Is also having trouble with the continuous glucose monitor. He does not follow with stummel selector. Recently just been using the NovoLog. His sugars are running high in the 300s. Recent HbA1c was 12.7. Patient had gone to work he started feeling unwell. Started having nausea vomiting. Found to have sugars reading above 500. Came to the ER. Patient's anion gap was 16. Blood glucose was 555. Talk to the ER physician. Decided to start the patient on insulin drip. Patient been feeling weak tired. No respiratory or urinary symptoms. No fever or chills. Patient was started on insulin drip. Sugars did come down. Started on Levemir and NovoLog. Patient is going home on the same. Seen by diabetic coordinator/educator in the hospital. Doing much better. He will follow up with stummel selector and his PCP. Physical examination: VITAL SIGNS: 98.4, 88, 16, 105/71, percent room air GENERAL: Sitting up, comfortable EYES: Pupils equal. Conjunctiva normal. HEENT: External appearance of nose and ears normal, oral cavity dry. NECK: JVD not raised; masses not palpable. HEART: First and second heart sounds are normal; no edema. LUNGS: Respiratory rate normal; clear to auscultation. ABDOMEN: Soft, nontender, liver spleen not palpable, no masses palpable. PSYCH: Alert and oriented x3; mood and affect normal. INVESTIGATIONS, reviewed in the clinical context: Potassium 4.5 creatinine 0.71 Previous testing Potassium 4.9 crit 0.8 to blood glucose 555 serum acetone positive UA positive for ketones and glucose Assessment: -Acute diabetic ketoacidosis -Diabetes mellitus type I, uncontrolled with hyperglycemia. Patient's on insulin pump but supplies are not working right. He is having mechanical problem. Diabetic peripheral neuropathy Disposition: Home Patient Condition at Discharge: Stable Plan - Discharge Summary Discharge Rx Participant: No New Discharge Prescriptions: New Insulin Detemir (Levemir) [Levemir] 30 unit SQ HS #1 syr Continue Magnesium 200 mg PO HS Modafinil [Provigil] 200 mg PO HS PRN PRN Reason: IF WORKING ONLY Insulin Aspart [NovoLOG Flexpen] 8 units SQ AC-TID Gabapentin [Neurontin] 100 mg PO AC-TID Cyanocobalamin (Vitamin B-12) [Vitamin B-12] 2,000 mcg PO HS Discharge Medication List Cyanocobalamin (Vitamin B-12) [Vitamin B-12] 2,000 mcg PO HS 01/03/19 [History] Gabapentin [Neurontin] 100 mg PO AC-TID 01/03/19 [History] Insulin Aspart [NovoLOG Flexpen] 8 units SQ AC-TID 01/03/19 [History] Magnesium 200 mg PO HS 01/03/19 [History] Modafinil [Provigil] 200 mg PO HS PRN 01/03/19 [History] Insulin Detemir (Levemir) [Levemir] 30 unit SQ HS #1 syr 01/04/19 [Rx] Follow up Appointment(s)/Referral(s): Bg Jeter MD [REFERRING] - 3 Days (call office sunday for appt) Dakota Valero MD [Primary Care Provider] - 3 Days (call office sunday for appt) Patient Instructions/Handouts: Diabetic Ketoacidosis (DC) Discharge Disposition: HOME SELF-CARE
== END 2019-01-04 17:50 | disposition home or self-care (01) ==
LOC: EC 07:30 → 3SCARD 08:51
PROVIDERS: ADMIT Hospitalist; ATTEND Hospitalist
DX: E10.10 Type 1 diabetes mellitus with ketoacidosis without coma (principal); G62.9 Polyneuropathy, unspecified; E10.42 Type 1 diabetes mellitus with diabetic polyneuropathy; Z79.4 Long term (current) use of insulin; Z96.41 Presence of insulin pump (external) (internal); R20.0 Anesthesia of skin; R20.2 Paresthesia of skin; Z79.899 Other long term (current) drug therapy; Z23 Encounter for immunization
CPT/HCPCS: 96361 ×2; 96372 ×2; 96360; 99284; 36415; 80051; 80048 ×2; 82565; 82009; 84100; 84520; 81003; 90732; 90686; G0378 ×2; G0008; G0009; J1650 ×2

== ENCOUNTER 2019-10-07 17:49 | Emergency (ER) | payer BC, OTHER ==
[2019-10-07 18:10] VITALS: BP 124/65; PULSE 88; RESP 18; TEMP 98.2
[2019-10-07] MEDS ORDERED: DIPH,PERTUS(ACELL)TETVAC-LF 0.5 ML VIAL IM ONE (18:19)
[2019-10-07] MEDS ORDERED: GELATIN SPONGE,ABSORB (SMALL) 1 EACH SPONGE TOPICAL STA (18:19)
--- NOTE | 2019-10-07 18:24 | ED ---
Wound/Laceration HPI - General Chief Complaint: Wound/Laceration Stated Complaint: [facility] - finger lac Time Seen by Provider: 10/07/19 18:15 Source: patient, RN notes reviewed Mode of arrival: ambulatory Limitations: no limitations - History of Present Illness Initial Comments: 24-year-old male presents emergency Department chief complaint laceration. Pat allie states this happened yesterday. Patient states that his work centimeters he still is bleeding. He is unsure when his last tetanus was. Patient states that he has a laceration to his left fourth digit and a small to his left third digit. He has a known diabetic is concerned about infections. Patient denies any decreased range of motion no other complaints. - Related Data Home Medications Medication Instructions Recorded Confirmed Cyanocobalamin (Vitamin B-12) 2,000 mcg PO HS 01/03/19 01/03/19 [Vitamin B-12] Gabapentin [Neurontin] 100 mg PO AC-TID 01/03/19 01/03/19 Insulin Aspart [NovoLOG Flexpen] 8 units SQ AC-TID 01/03/19 01/03/19 Magnesium 200 mg PO HS 01/03/19 01/03/19 Modafinil [Provigil] 200 mg PO HS PRN 01/03/19 01/03/19 Previous Rx's Medication Instructions Recorded Insulin Detemir (Levemir) [Levemir] 30 unit SQ HS #1 syr 01/04/19 Cephalexin [Keflex] 500 mg PO Q8HR #21 cap 10/07/19 Allergies Allergy/AdvReac Type Severity Reaction Status Date / Time No Known Allergies Allergy Verified 10/07/19 18:09 Review of Systems ROS Statement: Those systems with pertinent positive or pertinent negative responses have been documented in the HPI. ROS Other: All systems not noted in ROS Statement are negative. Past Medical History Past Medical History: Diabetes Mellitus Additional Past Medical History / Comment(s): IDDM, neuropathy bilteral hands/fingers, pt states he has insulin pump but has issues with it "clogging" and has limited supplies so will then convert to his insulins pen History of Any Multi-Drug Resistant Organisms: None Reported Past Surgical History: No Surgical Hx Reported Additional Past Surgical History / Comment(s): oral Past Anesthesia/Blood Transfusion Reactions: No Reported Reaction Additional Past Anesthesia/Blood Transfusion Reaction / Comment(s): "has never received any blood transfusions" Past Psychological History: No Psychological Hx Reported Smoking Status: Never smoker Past Alcohol Use History: None Reported Past Drug Use History: None Reported - Past Family History Mother History Unknown: Yes Family Medical History: No Reported History Additional Family Medical History / Comment(s): Mother is healthy Father History Unknown: Yes Family Medical History: No Reported History Additional Family Medical History / Comment(s): Father is healthy General Exam Limitations: no limitations General appearance: alert, in no apparent distress Head exam: Present: atraumatic, normocephalic, normal inspection Respiratory exam: Present: normal lung sounds bilaterally. Absent: respiratory distress, wheezes, rales, rhonchi, stridor Cardiovascular Exam: Present: regular rate, normal rhythm, normal heart sounds. Absent: systolic murmur, diastolic murmur, rubs, gallop, clicks Extremities exam: Present: other (Left hand fourth digit distal tip there is approximate 1 cm near skin avulsion minimal bleeding. Full range of motion neurovascular intact there is superficial laceration to the left hand third digit) Course Vital Signs 10/07/19 18:06 Temperature 98.2 F Pulse Rate 88 Respiratory 18 Rate Blood Pressure 124/65 O2 Sat by Pulse 99 Oximetry Medical Decision Making - Medical Decision Making Patient has old laceration that cannot be repaired at this time. Gelfoam was applied for minor bleeding. Tetanus is updated. Patient is concerned about infections as he isn't known diabetic who placed on short course with close follow-up return parameters were discussed. Disposition Clinical Impression: Laceration of finger of left hand Disposition: HOME SELF-CARE Condition: Stable Instructions (If sedation given, give patient instructions): Laceration Without Closure (ED), Finger Laceration (ED) Additional Instructions: Please return to the Emergency Department if symptoms worsen or any other concerns. Prescriptions: Cephalexin [Keflex] 500 mg PO Q8HR #21 cap Is patient prescribed a controlled substance at d/c from ED?: No Referrals: Dakota Valero MD [Primary Care Provider] - 1-2 days Time of Disposition: 18:24
== END 2019-10-07 18:58 | disposition home or self-care (01) ==
LOC: EC 17:49
DX: S61.215A Laceration without foreign body of left ring finger without damage to nail, initial encounter (principal); Z23 Encounter for immunization; E11.9 Type 2 diabetes mellitus without complications; Z79.4 Long term (current) use of insulin; Z79.899 Other long term (current) drug therapy; X58.XXXA Exposure to other specified factors, initial encounter; Y92.69 Other specified industrial and construction area as the place of occurrence of the external cause; Y99.0 Civilian activity done for income or pay
CPT/HCPCS: 90471; 90715; 99282

== ENCOUNTER → 2020-02-27 | Outpatient (CLI) | payer BC | END | disposition home or self-care (01) | LOC: LABWHC1 13:06 | PROVIDERS: ATTEND Family Medicine | DX: R11.2 Nausea with vomiting, unspecified (principal) | CPT/HCPCS: U0003; C9803; U0005 ==

== ENCOUNTER → 2022-01-23 | Outpatient (CLI) | payer BC ==
--- NOTE | 2022-01-23 19:25 | US ---
EXAMINATION TYPE: US abdomen complete DATE OF EXAM: 01/23/2022 COMPARISON: NONE CLINICAL HISTORY: E10.65 TYPE I DM. DM type 1, no symptoms, not sure why this was ordered TECHNIQUE: Multiple sonographic images of the abdomen are obtained. FINDINGS: EXAM MEASUREMENTS: Liver Length: 17.9 cm Gallbladder Wall: 0.2 cm CBD: 0.4 cm Spleen: 11.5 cm Right Kidney: 12.2 x 5.8 x 4.0 cm Left Kidney: 11.4 x 5.1 x 4.7 cm Pancreas: wnl Liver: wnl Gallbladder: wnl Evidence for sonographic Polanco's sign: no CBD: wnl Spleen: wnl Right Kidney: wnl Left Kidney: wnl Upper IVC: wnl Abd Aorta: wnl The liver is homogenous. The intrahepatic portion of the IVC and proximal abdominal aorta are within normal limits. There is no evidence of cholelithiasis. Common bile duct is unremarkable. The visu alized portions of the pancreas are homogenous. The spleen is unremarkable. Kidneys are symmetric a nd free of hydronephrosis. No renal lesions are seen. IMPRESSION: Unremarkable abdominal ultrasound.
== END | disposition home or self-care (01) ==
LOC: RADUSWWP 16:16
PROVIDERS: ATTEND Internal Medicine Endocrinology, Diabetes & Metabolism
DX: E10.65 Type 1 diabetes mellitus with hyperglycemia (principal)
CPT/HCPCS: 76700